=== PATIENT | female | born 1970 | race Caucasian/White ===

== ENCOUNTER → 2024-02-29 | Outpatient (CLI) | payer OTHER | END | disposition home or self-care (01) | LOC: LAB 10:16 | PROVIDERS: ATTEND Internal Medicine | DX: E03.8 Other specified hypothyroidism (principal) | CPT/HCPCS: 36415; 84439; 84443; 84480 ==

== ENCOUNTER → 2024-06-04 | Outpatient (CLI) | payer OTHER | END | disposition home or self-care (01) | LOC: RAD 09:32 | PROVIDERS: ATTEND Internal Medicine | DX: Z12.31 Encounter for screening mammogram for malignant neoplasm of breast (principal); R92.333 Mammographic heterogeneous density, bilateral breasts | CPT/HCPCS: 77063; 77067 ==

== ENCOUNTER → 2024-07-03 | Outpatient (CLI) | payer OTHER ==
[2024-07-03 11:42] LABS: BASOPHIL % 0.4 % (0.1-1.2); EOSINOPHIL # 0.1 10^3/uL (0.0-0.2); HEMATOCRIT(ML) 43.8 % (36.0-46.0); HEMOGLOBIN 14.3 g/dL (12.0-15.0); LYMPHOCYTES # 1.38 10^3/uL1 (1.0-4.8); MEAN CORP HGB 29.1 pg (26-34); MEAN CORP HGB CONCENTRATION 32.6 g/dL (33-36.5); MONOCYTES # 0.4 10^3/uL (0.3-0.8); MONOCYTES % 6.8 % (5.0-12.0); NEUTROPHIL # 3.3 10^3/uL (1.8-7.7); NEUTROPHILS % 64.8 % (41.0-85.0); PLATELET COUNT 243 10^3/uL (150-400); RED BLOOD CELL 4.92 10^6/uL (4.00-5.20); RED CELL DISTRIBUTION WIDTH 12.8 % (11.5-14.5); WHITE BLOOD CELL 5.1 10^3/uL (4.5-11.0)
[2024-07-03 11:46] LABS: +ADD MANUAL DIFF(NO CHRG) NO
[2024-07-03 12:57] LABS: ALBUMIN(ML) 3.8 g/dL (3.4-5.0); ALBUMIN/GLOBULIN RATIO 1.225; BUN/CREATININE RATIO 21.33 (10.0-20.0); CARBON DIOXIDE 30.4 mmol/L (20.0-32); CREATININE SERUM 0.75 mg/dL (0.59-1.40); EST GFR, NON-AA 81.1 (>/=60); LDL/HDL RATIO 0.8; POTASSIUM 4.4 mmol/L (3.6-5.2)
== END | disposition home or self-care (01) ==
LOC: LAB 11:24
PROVIDERS: ATTEND Internal Medicine
DX: E55.9 Vitamin D deficiency, unspecified (principal); Z00.00 Encounter for general adult medical examination without abnormal findings; E03.8 Other specified hypothyroidism; R53.83 Other fatigue
CPT/HCPCS: 36415; 80053; 80061; 82306; 82607; 83735; 84439; 84443; 84480; 85025

== ENCOUNTER → 2024-08-17 | Outpatient (CLI) | payer OTHER | END | disposition home or self-care (01) | LOC: NPLAB 13:48 | PROVIDERS: ATTEND Nurse Practitioner Women's Health | DX: Z12.4 Encounter for screening for malignant neoplasm of cervix (principal); Z11.3 Encounter for screening for infections with a predominantly sexual mode of transmission | CPT/HCPCS: 88313 ==

== ENCOUNTER → 2024-08-23 | Outpatient (CLI) | payer OTHER | END | disposition home or self-care (01) | LOC: BD 14:30 | PROVIDERS: ATTEND Nurse Practitioner Women's Health | DX: E28.310 Symptomatic premature menopause (principal) | CPT/HCPCS: 77080 ==

== ENCOUNTER → 2024-10-22 | Outpatient (CLI) | payer OTHER | END | disposition home or self-care (01) | LOC: RAD 10:18 | PROVIDERS: ATTEND Internal Medicine | DX: M47.812 Spondylosis without myelopathy or radiculopathy, cervical region (principal); M48.02 Spinal stenosis, cervical region; M54.2 Cervicalgia | CPT/HCPCS: 72040 ==